=== PATIENT | female | born 1935 | race Hispanic/Latino ===

== ENCOUNTER 2017-11-20 08:42 | Inpatient (IN) | payer MEDICARE ==
--- NOTE | 2017-11-20 09:14 | ED PDOC ---
Arrival/HPI - General Chief Complaint: GI Problem Time Seen by Provider: 11/20/17 08:44 Historian: Patient EM Caveat: Uncooperative - History of Present Illness Narrative History of Present Illness (Text): 11/20/17 08:50 82 year old female, whose past medical history includes subclinical stenosis bilateral carotid artery and superapubic surgery (possibly abdominal hysterectomy VS ), presents to the emergency department via EMS complaining of dizziness, nausea, and vomiting that began 3 hours ago. Patient reports she was woken up by these symptoms and reports an unquantified amount of episodes of vomiting and diarrhea. Denies any hematochezia, hematemesis, or melena. She denies any similar episodes in the past, but EMS reports differently stating her son reports sh experienced similar episodes in the past 1-2 weeks. Patient was uncooperative with further HPI and ROS and refusing to answer questions stating "I dont want to talk anymore. Get me medicine". PMD: Dr. Castro Time/Duration: Other (3 hours ago) Symptom Onset: Sudden Symptom Course: Unchanged Activities at Onset: Light Context: Home Past Medical History - Provider Review Nursing Documentation Reviewed: Yes - Infectious Disease Hx of Infectious Diseases: None - Tetanus Immunization Tetanus Immunization: Unknown - Reproductive Menopause: Yes - Cardiac Hx Cardiac Disorders: Yes Hx Hypertension: Yes - Pulmonary Hx Respiratory Disorders: No - Neurological Hx Neurological Disorder: No - HEENT Hx HEENT Disorder: No - Renal Hx Renal Disorder: No - Endocrine/Metabolic Hx Endocrine Disorders: No - Hematological/Oncological Hx Blood Disorders: No - Integumentary Hx Dermatological Disorder: No - Musculoskeletal/Rheumatological Hx Musculoskeletal Disorders: No - Gastrointestinal Hx Gastrointestinal Disorders: No - Genitourinary/Gynecological Hx Genitourinary Disorders: No - Psychiatric Hx Psychophysiologic Disorder: No Hx Substance Use: No - Surgical History Hx Appendectomy: Yes Hx Cholecystectomy: Yes - Anesthesia Hx Anesthesia: Yes Hx Anesthesia Reactions: No Hx Malignant Hyperthermia: No - Suicidal Assessment Feels Threatened In Home Enviroment: No Family/Social History - Physician Review Nursing Documentation Reviewed: Yes Family/Social History: No Known Family HX Smoking Status: Former Smoker Hx Alcohol Use: No Hx Substance Use: No Hx Substance Use Treatment: No Allergies/Home Meds Allergies/Adverse Reactions: Allergies No Known Allergies Allergy (Verified 11/20/17 08:45) Home Medications: Home Meds Medication Instructions Recorded Confirmed Lisinopril [Zestril] 20 mg PO DAILY 11/20/17 11/20/17 Review of Systems - Physician Review All systems were reviewed & negative as marked: Yes - Review of Systems Systems not reviewed;Unavailable: Uncooperative Cardiovascular: absent: Chest Pain Gastrointestinal: Diarrhea, Nausea, Vomiting. absent: Hematochezia, Hematemesis , Other (Melena) Neurological: Dizziness Physical Exam Vital Signs Reviewed: Yes Vital Signs Temp Pulse Resp BP Pulse Ox 11/20/17 11:39 66 18 172/79 H 99 11/20/17 08:51 98.0 F 65 20 188/83 H 99 Temperature: Afebrile Blood Pressure: Hypertensive Pulse: Regular Respiratory Rate: Normal Appearance: Positive for: Well-Appearing, Non-Toxic, Comfortable Pain Distress: Mild Mental Status: Positive for: Alert and Oriented X 3 - Systems Exam Head: Present: Atraumatic, Normocephalic Pupils: Present: PERRL Extroacular Muscles: Present: EOMI Conjunctiva: Present: Normal Mouth: Present: Dry Neck: Present: Normal Range of Motion. No: JVD Respiratory/Chest: Present: Clear to Auscultation, Good Air Exchange. No: Respiratory Distress, Accessory Muscle Use Cardiovascular: Present: Regular Rate and Rhythm, Normal S1, S2. No: Murmurs Abdomen: No: Tenderness, Distention, Peritoneal Signs Back: Present: Normal Inspection Upper Extremity: Present: Normal Inspection. No: Cyanosis, Edema Lower Extremity: Present: Normal Inspection. No: Edema Neurological: Present: GCS=15, CN II-XII Intact, Speech Normal Skin: Present: Warm, Dry, Other (Mild Pallor). No: Rashes Psychiatric: Present: Alert, Oriented x 3, Normal Insight, Normal Concentration Medical Decision Making ED Course and Treatment: 11/20/17 08:50 Impression: 82 year old female presents complaining of dizziness, nausea, vomiting and diarrhea that began 3 hours ago. Plan: -- EKG -- Labs -- Chest X-ray -- Pepcid, Zofran Inj -- Blood Culture -- ABD 2 Views X-ray -- Urinalysis -- Reassess and disposition Progress Notes: 11/20/17 09:45 EKG shows Sinus rhythm at 66 BPM with no ischemic ST/T segments. No arrhythmogenic intervals. Interpreted by me. 11/20/17 13:22 upon further hpi from sons she admits to eating a bologna sandwhich , of which the meat may have been questionable. Pt. however continuing to complain of orthostatic dizziness and nausea . Pt will be placed in obervation to facilitate further hydration and emetolysis, dizziness evaluation. Pt will not tolerate zaid-hallpike and dizziness presumed to issue from dehydration and abdominal source of nausea itself. - Lab Interpretations Lab Results: 11/20/17 09:30 11/20/17 09:30 Lab Results 11/20/17 12:00: Urine Color Light yellow, Urine Appearance Cloudy, Urine pH 7.5 , Ur Specific [place] 1.015, Urine Protein Negative, Urine Glucose (UA) Negative , Urine Ketones Negative, Urine Blood Trace-intact H, Urine Nitrate Negative, Urine Bilirubin Negative, Urine Urobilinogen 0.2, Ur Leukocyte Esterase Large H , Urine RBC 0 - 2, Urine WBC 2 - 5, Ur Epithelial Cells 3 - 4, Urine Bacteria Many 11/20/17 09:30: Sodium 145, Potassium 4.2, Chloride 107, Carbon Dioxide 26, Anion Gap 17, BUN 17, Creatinine 0.7, Est GFR ( Amer) > 60, Est GFR (Non- Af Amer) > 60, Random Glucose 156 H, Calcium 9.6, Total Bilirubin 0.4, AST 27, ALT 30, Alkaline Phosphatase 102, Lactate Dehydrogenase 615, Total Creatine Kinase 86, Troponin I < 0.01, Total Protein 7.1, Albumin 4.4, Globulin 2.7, Albumin/Globulin Ratio 1.6, Amylase 96, Lipase 226 11/20/17 09:30: PT 10.8, INR 0.94, APTT 28.7 11/20/17 09:30: WBC 11.1 H, RBC 4.97, Hgb 14.6, Hct 44.2, MCV 88.9, MCH 29.4, MCHC 33.0, RDW 14.1, Plt Count 251, MPV 9.5, Gran % 86.8 H, Lymph % (Auto) 7.4 L , [place] % (Auto) 4.7, Eos % (Auto) 0.9 L, Baso % (Auto) 0.2, Gran # 9.65 H, Lymph # (Auto) 0.8 L, [place] # (Auto) 0.5, Eos # (Auto) 0.1, Baso # (Auto) 0.02 I have reviewed the lab results: Yes - RAD Interpretation Radiology Orders: 11/20/17 08:55 CHEST PORTABLE [RAD] Stat ABD 2 VIEWS (FLAT/UP OR DECUB) [RAD] Stat 11/20/17 11:42 HEAD W/O CONTRAST [CT] Stat - EKG Interpretation Interpreted by ED Physician: Yes Type: 12 lead EKG - Medication Orders Current Medication Orders: Lactated Ringer's (Lactated Ringer's) 1,000 mls @ 100 mls/hr IV .Q10H STA Stop: 11/20/17 20:42 Last Admin: 11/20/17 10:50 Dose: 100 mls/hr eMAR Start Stop Document 11/20/17 10:50 SF (Rec: 11/20/17 10:51 SF [email or web address]) Intravenous Solution Start Date 11/20/17 Start Time 10:50 End Date 11/20/17 Discontinued Medications Famotidine (Pepcid) 20 mg IVP STAT STA Stop: 11/20/17 08:56 Last Admin: 11/20/17 09:26 Dose: 20 mg IVP Administration Document 11/20/17 09:26 SF (Rec: 11/20/17 09:26 SF [email or web address]) Charges for Administration # of IVP Administrations 1 Metoclopramide HCl (Reglan) 10 mg IVP STAT STA Stop: 11/20/17 12:08 Last Admin: 11/20/17 12:22 Dose: 10 mg IVP Administration Document 11/20/17 12:22 SF (Rec: 11/20/17 12:22 [email or web address]) Charges for Administration # of IVP Administrations 1 Ondansetron HCl (Zofran Inj) 4 mg IVP STAT STA Stop: 11/20/17 08:56 Last Admin: 11/20/17 09:26 Dose: 4 mg IVP Administration Document 11/20/17 09:26 SF (Rec: 11/20/17 09:26 [email or web address]) Charges for Administration # of IVP Administrations 1 - Scribe Statement The provider has reviewed the documentation as recorded by the Jewel Crawford Provider Scribe Attestation: All medical record entries made by the Scribe were at my direction and personally dictated by me. I have reviewed the chart and agree that the record accurately reflects my personal performance of the history, physical exam, medical decision making, and the department course for this patient. I have also personally directed, reviewed, and agree with the discharge instructions and disposition. Disposition/Present on Arrival - Present on Arrival Any Indicators Present on Arrival: No History of DVT/PE: No History of Uncontrolled Diabetes: No Urinary Catheter: No History of Decub. Ulcer: No History Surgical Site Infection Following: None - Disposition Have Diagnosis and Disposition been Completed?: Yes Diagnosis: Syncope, near, Dehydration, Gastroenteritis Disposition: HOSPITALIZED Disposition Time: 13:27 Patient Plan: Admission Condition: GUARDED Referrals: Camilo Koenig MD [Primary Care Provider] - Follow up with primary Forms: [employer] ([place])
[2017-11-20 09:42] LABS: BASO # 0.02 K/mm3 (0.0-2.0); BASO % 0.2 % (0.0-3.0); EOS # 0.1 (0.0-0.7); EOS % 0.9 % (1.5-5.0); GRAN # 9.65 (1.4-6.5); GRAN % 86.8 % (50.0-68.0); HEMOGLOBIN 14.6 g/dL (12.0-16.0); LYMPH # 0.8 (1.2-3.4); LYMPH % 7.4 % (22.0-35.0); MEAN CELL VOLUME 88.9 fl (80.0-105.0); MEAN CORPUSCULAR HEMOGLOBIN 29.4 pg (25.0-35.0); MEAN PLATELET VOLUME 9.5 fl (7.0-11.0); MONO # 0.5 (0.1-0.6); MONO % 4.7 % (1.0-6.0); RBC 4.97 10^6/uL (3.5-6.1); RED CELL DISTRIBUTION WIDTH 14.1 % (11.5-14.5); WHITE BLOOD COUNT 11.1 10^3/ul (4.5-11.0)
[2017-11-20 09:47] LABS: ALB/GLOB RATIO 1.6 (1.1-1.8); ALBUMIN 4.4 g/dL (3.0-4.8); ALT/SGPT 30 U/L (7-56); AMYLASE 96 U/L (35-125); AST/SGOT 27 U/L (14-36); BLOOD UREA NITROGEN 17 mg/dL (7-21); CALCIUM 9.6 mg/dL (8.4-10.5); GFR AFRICAN-AMERICAN > 60; GFR NON-AFRICAN AMERICAN > 60; LIPASE 226 U/L (23-300)
[2017-11-20 09:50] LABS: INR 0.94 (0.93-1.08); PARTIAL THROMBOPLASTIN TIME 28.7 Seconds (25.1-36.5); PROTHROMBIN TIME 10.8 SECONDS (9.4-12.5)
[2017-11-20 09:59] LABS: TROPONIN I < 0.01 ng/mL
[2017-11-20] MEDS ORDERED: Lactated Ringer's 1,000 ML IV STA (10:43)
[2017-11-20 12:12] LABS: PH,URINE 7.5 (4.7-8.0); URINE APPEARANCE CLOUDY (CLEAR); URINE BILIRUBIN NEGATIVE (NEGATIVE); URINE BLOOD TRACE-INTACT (NEGATIVE); URINE COLOR LIGHT YELLOW (YELLOW); URINE GLUCOSE (UA) NEGATIVE (NEGATIVE); URINE LEUKOCYTE ESTERASE LARGE Leu/uL (NEGATIVE); URINE PROTEIN NEGATIVE mg/dL (<30 mg/dL); URINE UROBILINOGEN 0.2 E.U./dL (<1 E.U./dL)
[2017-11-20 12:23] LABS: URINE BACTERIA MANY (NEG); URINE RBC 0 - 2 /hpf (0-2)
--- NOTE | 2017-11-20 12:33 | RAD ---
HISTORY: examine gas pattern COMPARISON: No prior. FINDINGS: BOWEL: Normal. No obstruction. No free air. BONES: Normal. OTHER FINDINGS: None. IMPRESSION: No active disease.
--- NOTE | 2017-11-20 12:33 | RAD ---
HISTORY: routine med exam COMPARISON: No prior. FINDINGS: LUNGS: No active pulmonary disease. PLEURA: No significant pleural effusion identified, no pneumothorax apparent. CARDIOVASCULAR: Normal. OSSEOUS STRUCTURES: No significant abnormalities. VISUALIZED UPPER ABDOMEN: Normal. OTHER FINDINGS: None. IMPRESSION: No active disease.
--- NOTE | 2017-11-20 14:19 | CT ---
PROCEDURE: CT HEAD WITHOUT CONTRAST. HISTORY: dizziness/vomiting COMPARISON: None available. TECHNIQUE: Axial computed tomography images were obtained through the head/brain without intravenous contrast. Radiation dose: Total exam DLP = 992.87 mGy-cm. This CT exam was performed using one or more of the following dose reduction techniques: Automated exposure control, adjustment of the mA and/or kV according to patient size, and/or use of iterative reconstruction technique. FINDINGS: HEMORRHAGE: No intracranial hemorrhage. BRAIN: No mass effect or edema. There is no significant atrophy. There is mild periventricular white matter lucency consistent with microvascular white matter ischemic change. VENTRICLES: Unremarkable. No hydrocephalus. CALVARIUM: Unremarkable. PARANASAL SINUSES: Unremarkable as visualized. No significant inflammatory changes. MASTOID AIR CELLS: Unremarkable as visualized. No inflammatory changes. OTHER FINDINGS: None. IMPRESSION: No intracranial mass, hemorrhage or evidence of acute infarct.
--- NOTE | 2017-11-20 18:00 | HP ---
HISTORY OF PRESENT ILLNESS: The patient is 82 years old, patient of Dr. Koenig, who was brought in by her sons and she was complaining of generalized weakness, not feeling well, has been having intractable nausea with some epigastric discomfort. Denies any fever or chills. Does not want to talk much. She states she is not feeling well. PAST MEDICAL HISTORY: She has significant past medical history of bilateral carotid stenosis, status post abdominal hysterectomy. She does have a history of hypertension. ALLERGIES: SHE IS NOT ALLERGIC TO ANY MEDICATION. MEDICATIONS AT HOME: She is on lisinopril 20 mg daily. SOCIAL HISTORY: She lives by herself. She used to be a smoker in the past. Son lives at distance and they states that she is very self sufficient. PHYSICAL EXAMINATION: GENERAL: She just states, I do not feel good. On examination, she is awake, alert, oriented, communicative. VITAL SIGNS: She is afebrile, pulse 72, respirations 16, blood pressure 140/62. LUNGS: Bilateral good airflow. No rhonchi or crackle. HEART: S1 and S2 audible. ABDOMEN: Soft. Nontender. No rebound. No guarding. NEUROLOGIC: The patient is awake and alert, able to communicate. LABORATORY EXAM: WBC is 11.1, hemoglobin 14.6, hematocrit 44.2, platelet 251. PT 10.8, INR 0.94. Chemistry: Sodium 145, potassium 4.2, chloride 107, CO2 of 26, BUN 17, creatinine 0.7, blood sugar of 156. Urinalysis shows large leukocyte. CT scan of the head: No intracranial mass. ASSESSMENT: 1. Intractable nausea. 2. Gastroenteritis. 3. History of hypertension. PLAN: We will start the patient on IV fluid We will give her Zofran. Clear liquid diet. We will follow up her electrolyte in the a.m. Chang Spencer MD
[2017-11-20 18:17] LABS: HDL CHOLESTEROL 57 mg/dL (29-60)
[2017-11-20 18:28] LABS: LDL CHOLESTEROL 191 mg/dL (0-129)
[2017-11-20 18:29] LABS: TROPONIN I < 0.01 ng/mL
[2017-11-20 20:12] VITALS: BMI 25.2
[2017-11-20] MEDS ORDERED: Pneumococcal 23-Valent Vaccine IM ONE (20:12)
[2017-11-21 01:00] VITALS: RESP 18
[2017-11-21 07:54] LABS: BASO # 0.03 K/mm3 (0.0-2.0); BASO % 0.4 % (0.0-3.0); EOS # 0.3 (0.0-0.7); EOS % 3.5 % (1.5-5.0); GRAN # 6.11 (1.4-6.5); GRAN % 73.8 % (50.0-68.0); LYMPH # 1.2 (1.2-3.4); MEAN CELL VOLUME 89.5 fl (80.0-105.0); MEAN CORPUSCULAR HEMOGLOBIN 28.8 pg (25.0-35.0); MEAN CORPUSCULAR HGB CONC 32.2 g/dl (31.0-37.0); MEAN PLATELET VOLUME 9.4 fl (7.0-11.0); MONO # 0.7 (0.1-0.6); MONO % 8.3 % (1.0-6.0); RBC 4.86 10^6/uL (3.5-6.1); RED CELL DISTRIBUTION WIDTH 14.1 % (11.5-14.5); WHITE BLOOD COUNT 8.3 10^3/ul (4.5-11.0)
[2017-11-21 08:19] LABS: ALB/GLOB RATIO 1.4 (1.1-1.8); ALBUMIN 3.9 g/dL (3.0-4.8); ALT/SGPT 28 U/L (7-56); AST/SGOT 28 U/L (14-36); BLOOD UREA NITROGEN 16 mg/dL (7-21); CALCIUM 9.5 mg/dL (8.4-10.5); GFR AFRICAN-AMERICAN > 60; GFR NON-AFRICAN AMERICAN > 60
[2017-11-21 08:30] LABS: FREE T4 0.94 ng/dL (0.78-2.19)
--- NOTE | 2017-11-21 09:12 | CARD ---
APPROVED REPORT EKG Measurement Heart [id number] <Conclusion> Sinus rhythm with premature atrial complexes LVH by voltage
[2017-11-22 06:10] VITALS: TEMP 97.9; O2SAT 96
[2017-11-22 09:23] VITALS: BP 147/81
--- NOTE | 2017-11-22 10:26 | PN ---
DATE: 11/21/2017 SUBJECTIVE: The patient is 82 years old, seen and examined. She states her nausea is better. No abdominal pain. Complained of generalized weakness. PHYSICAL EXAMINATION: VITAL SIGNS: She is afebrile, pulse 77, respirations 20, blood pressure 124/67. LUNGS: Bilateral good airflow. No rhonchi or crackle. HEART: S1 and S2 audible. ABDOMEN: Soft. Nontender. No rebound. No guarding. NEUROLOGIC: The patient is awake, alert, oriented, able to communicate. LABORATORY EXAM: WBC is 8.3, hemoglobin 14, hematocrit 43, platelet 251. Chemistry: Sodium 145, potassium 4.2, chloride 107, CO2 of 29, BUN 16, creatinine 0.8, blood sugar of 97. LFTs are within normal limit. Urine shows large leukocyte and tract blood. Blood culture, urine cultures were negative. ASSESSMENT: 1. Gastroenteritis. 2. History of hypertension. PLAN: We will continue the patient on IV fluid. Encourage p.o. intake. Start physical therapy. If the patient start to ambulate and tolerate food, can be discharged. Chang Spencer MD
[2017-11-22 10:38] VITALS: PULSE 89
--- NOTE | 2017-11-23 02:24 | DS ---
DISCHARGE SUMMARY: This is an 82-year-old female, coming into the hospital because of diarrhea, nausea, vomiting. She was diagnosed with gastroenteritis. Patient was placed on IV fluids, given Zofran. She had improvement of her symptoms. She states she is feeling well. She is asking to go home. She denies any abdominal pain, no diarrhea. No nausea, no vomiting. No dysuria, frequency, headaches. PHYSICAL EXAMINATION: VITAL SIGNS: Temperature is 97.9, pulse of 65, blood pressure 146/73, respirations 18, O2 saturation 96%. GENERAL: The patient is lying in bed, flat, comfortable. HEENT: No oral lesion. Anicteric sclerae. Moist mucosa. NECK: No JVD, adenopathy, or thyromegaly. CARDIOVASCULAR: S1 and S2, regular. No murmurs, rubs, or gallops. LUNGS: Clear to auscultation bilaterally. No wheeze, rales, or rhonchi. ABDOMEN: Bowel sounds are positive, soft, nontender, and nondistended. EXTREMITIES: No cyanosis, clubbing, or edema. ASSESSMENT: 1. Gastroenteritis. 2. Hypertension. PLAN: The patient is currently comfortable. She had blood cultures and urine cultures that were done. She had gastroenteritis. She is on lisinopril for hypertension; she is going to continue. She is on Zofran as needed. She is on a heart-healthy diet. The patient was offered to stay until after lunch to make sure that she is able to tolerate orally. She prefers to go home after breakfast. We will wait to see how she does with breakfast. If she is able to tolerate her breakfast, she will be able to go home. She is advised to follow up in the office with Dr. Koenig in 1 to 2 weeks after discharge. I advised her that if she has her symptoms, then she should come back to the hospital for further evaluation. Heath Waller MD
== END 2017-11-22 11:43 | disposition home or self-care (01) | DRG 392 ==
LOC: ED 08:42 → ERH 13:27 → 3RSO 15:45 → INTOOBSV 11-21 17:56 → OBSVTOIN 11-21 17:56
PROVIDERS: ADMIT Internal Medicine; ATTEND Internal Medicine Nephrology
DX: K52.9 Noninfective gastroenteritis and colitis, unspecified (principal); I10 Essential (primary) hypertension; Z79.899 Other long term (current) drug therapy; Z87.891 Personal history of nicotine dependence; Z90.710 Acquired absence of both cervix and uterus